=== PATIENT | male | born 1935 | race Caucasian/White ===

== ENCOUNTER 2023-09-07 23:18 | Inpatient (IN) | payer MEDICARE, OTHER, SELFPAY ==
[2023-09-07 18:19] VITALS: BP 160/89
[2023-09-07 19:01] LABS: % Basophils 0.6 % (0-2); % Eosinophils 7.4 % (0-6); % Immature Granulocytes 0.5 % (0-0.5); % Lymphocytes 16.9 % (20.5-51.1); % Monocytes 7.9 % (1.7-9.3); % Neutrophils 66.7 % (42.2-75.2); Absolute Basophils 0.1 10^3/uL (0-0.2); Absolute Immature Granulocytes 0.1 10^3/uL (0-0.05); Absolute Lymphocytes 2.4 10^3/uL (1.2-3.4); Absolute Monocytes 1.1 10^3/uL (0.1-0.6); Absolute Neutrophils 9.4 10^3/uL (1.4-6.5); Hematocrit 36.8 % (39.0-52.0); Mean Corp Hgb Conc. 32.6 g/dL (33.0-37.0); Mean Corpuscular Hgb 32.3 pg (27.0-31.0); Mean Corpuscular Volume 99.2 fL (80.0-94.0); Mean Platelet Volume 11.2 fL (7.4-10.4); Nucleated Red Blood Cells % 0 % (-); Platelet Count 278 10^3/uL (130-400); Red Blood Cell Count 3.71 10^6/uL (4.70-6.10); Red Cell Dist. Width 14.5 % (11.5-14.5); Urine Albumin Negative (Neg - Trace); Urine Bilirubin Negative (Negative); Urine Character Clear (Clear); Urine Color Yellow; Urine Glucose Negative (Negative); Urine Ketone Negative (Negative); Urine Leukocyte 1+ (Negative); Urine Nitrite Negative (Negative); Urine Occult Blood Negative (Negative); Urine Urobilinogen Negative (Neg - 1+); White Blood Cell Count 14.1 10^3/uL (4.8-10.8)
[2023-09-07 19:08] LABS: Urine Squamous Cell >30 /LPF (Few)
[2023-09-07 19:12] LABS: Urine Calcium Oxalate Crystals Present; Urine Yeast Few (Negative)
[2023-09-07 19:13] LABS: ALT (SGPT) 22 U/L (0-50); AST (SGOT) 29 U/L (17-59); Albumin 3.8 g/dl (3.5-5.0); Alkaline Phosphatase 81 U/L (38-126); Blood Urea Nitrogen 35 mg/dl (9-20); Calcium 12.8 mg/dl (8.4-10.2); Carbon Dioxide 26 mmol/L (22-30); Chloride 103 mmol/L (98-107); Glucose 111 mg/dl (70-99); Lactic Acid 2.2 mmol/L (0.7-2.0); Potassium 3.9 mmol/L (3.5-5.1); Sodium 139 mmol/L (135-145); Total Protein 6.7 g/dl (6.3-8.2); Urine Bacteria Few (Negative); eGFR 38.78
[2023-09-07] MEDS: NSS 1000 IV ×2 (20:48→23:28)
[2023-09-07 20:51] VITALS: BP 190/88
[2023-09-07] MEDS: ZOSYN 100 IV (20:53)
[2023-09-07 20:57] LABS: Urine Albumin Negative (Neg - Trace); Urine Bilirubin Negative (Negative); Urine Character Clear (Clear); Urine Color Yellow; Urine Glucose Negative (Negative); Urine Ketone Negative (Negative); Urine Leukocyte 1+ (Negative); Urine Nitrite Negative (Negative); Urine Occult Blood Negative (Negative); Urine Urobilinogen Negative (Neg - 1+)
[2023-09-07 21:09] LABS: PT 27.8 Sec (11.4-14.6)
[2023-09-07 21:14] LABS: Urine Calcium Oxalate Crystals Present; Urine Squamous Cell >30 /LPF (Few)
[2023-09-07 21:15] LABS: Urine Bacteria Few (Negative); Urine Red Blood Cell 0-2 /HPF (0-2)
[2023-09-07] MEDS: VANCOCIN 200 IV (21:35)
[2023-09-07 21:36] VITALS: BMI 28.0
[2023-09-07 21:59] VITALS: BP 177/81
--- NOTE | 2023-09-07 22:02 | ED.GENMED ---
History of Present Illness
General
Chief Complaint: Male Genito-Urinary Symptoms
Source: patient and spouse
Exam Limitations: none
Time Seen by Provider: 09/07/23 19:39
Nursing documentation reviewed up to this point in time: agreed with
Travel History
Have you had any contact with someone who has COVID-19?: No
Do you have any symptoms of coronavirus? Fever > 100 degrees, chills, cough, shortness of breath, sore throat, loss of taste or smell, muscle aches, or headache?: No
History of Present Illness
History of Present Illness:
Patient sent to ED by PCP for increaseing weakness and confusion. Symptoms started earlier this week. PCP evaluated him yesterday, sent him for labs and head CT. Head CT was neg. for acute findings. WBC elevated at 12 with left shift. Patient
denies fever/chills. reports his appetite has been poor.Now with cough. Brought to ED by spouse for eval.
Past History
Past History
ED Past Medical History: HTN, Hypercholesterolemia and Other (DVT,PE, PVD)
ED Past Surgical History: Orthopedic
Social History
Tobacco: Non-smoker
Alcohol: None
Drug: None
Personal:
Living: with family
Review of Systems
Review of Systems
Allergies reviewed?: Yes
All Other Systems: ROS reviewed and negative except as documented in HPI and ROS
Constitutional: Reports fatigue
Respiratory: Reports cough
Cardiac: Reports no symptoms
ABD/GI: Reports no symptoms
: Reports no symptoms
Musculoskeletal: Reports no symptoms
Skin: Reports no symptoms
Neurological: Reports weakness
Psychiatric: Reports no symptoms
Phy Exam
General Physical Exam
General Presentation: well appearing
General age: appears stated age
General Skin: warm and dry
General Habitus: normal
General Mental: alert
Cardiovascular Exam
Cardiovascular Exam: regular rate/rhythm and no edema
Pulmonary Exam
Pulmonary Exam: no respiratory distress, chest non tender and decreased breath sounds
Cough: productive cough
Gastrointestinal Exam
Gastrointestinal Exam: normal bowel sounds, non tender, soft, no organomegaly, non distended and no cva tenderness
Neurological Exam
Neurological Exam: alert, oriented x3, CN II-XII intact, no motor deficits, no sensory deficits and speech normal
Musculoskeletal Exam
Musculoskeletal Exam: full ROM and neuro vasc intact
Skin Exam
Skin Exam: normal color, warm/dry and no rash
Psychiatric Exam
Psychiatric Exam: normal mood/affect
Course
Orders/Labs/Results
Orders:
Orders
09/07/23 18:39
Complete Blood Count/With Diff Urgent
Comprehensive Metabolic Panel Urgent
Folate Urgent
Comment: ADD ON
Lactic Acid Urgent
NT-proBNP Routine
Comment: ADD ON
Urinalysis Reflex To Culture Urgent
Date Specimen was Collected: 09/07/23
Time Specimen was Collected: 18:24
Urine Microscopic Reflex Cult Urgent
Vitamin B12 Urgent
Comment: ADD ON
Urine Culture Urgent
DARION Source: U
Specimen Description:
Date Specimen was Collected: 09/07/23
Time Specimen was Collected: 18:24
09/07/23 19:52
CR Chest - 2 Views Urgent
Comment:
Reason For Exam: weakness, cough
09/07/23 19:53
0.9% Sodium Chloride 1000 ml [Nss] 1,000 ml IV BOLUS
09/07/23 20:25
Piperacillin/Tazo 4.5 Gram [Zosyn] 4.5 gram in 100 ml IV NOW
Vancomycin 1 Gram/200 ml [Vancocin] 1 gram in 200 ml IV NOW
09/07/23 20:43
Prothrombin Time Urgent
Urinalysis Urgent
Date Specimen was Collected: 09/07/23
Time Specimen was Collected: 20:33
Urine Microscopic Urgent
Date Specimen was Collected: 09/07/23
Time Specimen was Collected: 20:33
Blood Culture Urgent
DARION Source: Blood/Venous
Specimen Description:
Date Specimen was Collected: 09/07/23
Time Specimen was Collected: 18:24
09/07/23 22:24
COVID-19 Antigen Urgent
Source: Nasal Swab
Influenza A+B Rapid Molecular Urgent
DARION Source: Nasal Swab
Specimen Description:
09/07/23 22:52
Admit/Transfer Patient As Directed
Co-Sign Provider:
Level of Care: Inpatient admission
Assign to:: Medical/Surgical
Physician / Group: Yrn
Diagnosis: LICHA
Reason for Hospitalization: IVFs
Expected length of stay greater than two midnights?: Yes
ELOS- Estimated Length of Stay in days: 3
I certify the patient meets the requirements for IP care: Yes
09/07/23 23:17
Lactate Level [Lactic Acid] Urgent
09/07/23 23:25
0.9% Sodium Chloride 1000 ml [Nss] 1,000 ml IV 75 mls/hr
09/08/23 01:16
Acetaminophen [Tylenol] 650 mg PO Q4HPRN PRN
09/08/23 01:16
Activity As Directed
Activity Level: Out of Bed- Chair
With Assistance
I&O [Intake/ Output] As Directed
Frequency: q12h
Vital Signs As Directed
Frequency: Per unit guidelines
Weight As Directed
Frequency: Daily
Ot Eval And Treat Routine
Pt Eval And Treat Routine
Activity Level: Out of Bed-Early Mobility
09/08/23 Breakfast
Regular
At Your Request: Limited Participation
Does patient need a safe tray?: No
09/08/23 07:32
Basic Metabolic Panel IN AM
Complete Blood Count/No Diff IN AM
Magnesium IN AM
Prothrombin Time IN AM
09/08/23 08:00
Allopurinol [Zyloprim] 300 mg PO DAILY
Amlodipine [Norvasc] 2.5 mg PO DAILY
Cinacalcet HCl [Sensipar] 30 mg PO DAILY
Clopidogrel Bisulfate [Plavix] 75 mg PO DAILY
Metoprolol Xl [Toprol Xl] 25 mg PO BID
Tamsulosin [Flomax] 0.4 mg PO DAILY
Warfarin [Coumadin] 3 mg PO SUTUWEFRSA
09/08/23 18:00
Atorvastatin [Lipitor] 40 mg PO QPM
09/09/23 06:02
Prothrombin Time IN AM
09/10/23 06:00
Prothrombin Time IN AM
09/10/23 08:00
Warfarin [Coumadin] 4 mg PO MOTH
09/11/23 06:00
Prothrombin Time IN AM
09/12/23 06:00
Prothrombin Time IN AM
Abnormal Lab Results
09/07/23 09/07/23
18:39 20:43
WBC 14.1 H 10^3/uL
(4.8-10.8)
RBC 3.71 L 10^6/uL
(4.70-6.10)
Hgb 12.0 L g/dL
(13.0-18.0)
Hct 36.8 L %
(39.0-52.0)
MCV 99.2 H fL
(80.0-94.0)
MCH 32.3 H pg
(27.0-31.0)
MCHC 32.6 L g/dL
(33.0-37.0)
MPV 11.2 H fL
(7.4-10.4)
Abs Immat Gran (auto) 0.1 H 10^3/uL
(0-0.05)
Absolute Neuts (auto) 9.4 H 10^3/uL
(1.4-6.5)
Absolute Monos (auto) 1.1 H 10^3/uL
(0.1-0.6)
Absolute Eos (auto) 1.0 H 10^3/uL
(0-0.7)
Lymphocytes % 16.9 L %
(20.5-51.1)
Eosinophils % 7.4 H %
(0-6)
PT 27.8 H Sec
(11.4-14.6)
BUN 35 H mg/dl
(9-20)
Creatinine 1.7 H mg/dL
(0.7-1.3)
Glucose 111 H mg/dl
(70-99)
Lactic Acid 2.2 H mmol/L
(0.7-2.0)
Calcium 12.8 H mg/dl
(8.4-10.2)
Ur Leukocyte Esterase 1+ A
(Negative)
Leukocyte Esterase Rfl 1+ A
(Negative)
Urine RBC 3-6 A /HPF
(0-2)
Urine WBC 11-15 A /HPF
(0-5)
Urine WBC (Reflex) 11-15 A /HPF
(0-5)
Urine Bacteria Few A
(Negative)
Urine Bacteria (Reflex) Few A
(Negative)
Urine Yeast Few A
(Negative)
09/07/23 18:39
09/07/23 18:39
Vital Signs
Initial and Last Documented VS:
Initial Vital Signs
Temp Pulse Resp BP Pulse Ox
98.3 F 93 20 160/89 95
09/07/23 18:19 09/07/23 18:19 09/07/23 18:19 09/07/23 18:19 09/07/23 18:19
Last Documented Vital Signs
Temp Pulse Resp BP Pulse Ox
97.5 F 71 16 152/84 94
09/09/23 11:44 09/09/23 12:47 09/09/23 11:44 09/09/23 12:47 09/08/23 23:44
*Radiology
Radiology exam reviewed: radiology read reviewed
*Critical Care Note
Total Time (30-74mins, 75-104mins- exclusive of procedures): Not Applicable
ED Attending Note
-
Portions of this chart may have been created with voice recognition software.� Occasional wrong word or��sound alike� substitutions may have occurred due to the inherent limitations of voice recognition software.
Discharge Plan
Departure
Patient Disposition: Admit
Date of Disposition: 09/07/23
Time of Disposition: 22:07
Presentation/result/management discussed w/ accepting MD/DO: Hospitalist
Patient with high blood pressure during this ER visit?: Yes
Condition: Fair
Covid-19: Not Applicable
Discharge Problem:
Pneumonia, ARF (acute renal failure)
Interventions
Interventions:
*Risk Screen - Suicide Last Done: 09/07/23 18:19
*General Assessment Last Done: 09/07/23 18:19
*Neglect/Abuse Screening Last Done: 09/07/23 22:00
ED- Fall Risk Assessment Last Done: 09/08/23 00:49
*ED COVID-19 Vaccine History Last Done: 09/08/23 00:00
*Nursing Disposition Last Done: 09/08/23 01:05
ED-Male Genitourinary Assessment Last Done: 09/07/23 20:58
Discharge Date and Time
Discharge Date/Time: 09/08/23 01:27
--- NOTE | 2023-09-07 22:40 | HPS.HSE ---
Addendum entered and electronically signed by Yong Pool DO 09/07/23 23:55:
Patient seen and examined independently. Agree with findings and plan s set forth by Kinga Aranda PA-C.
Patient is an 88y M with PMH significant for hypertension, DVT / PE and CKD III who presents to ED for evaluation of confusion and generalized weakness. Some vague increase in weakness and confusion over the past 2 weeks. No focal / specific /
localizing complaints including chest pain, cough, N/V/D, urinary symptoms, etc. No fevers / chills. Patient seen by PCP today and advised to present to the ED to evaluate for 'infection somewhere in the body'.
In the ED, patient is resting comfortably and has no complaints.
Ass:
LICHA on CKD III
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
Pneumonitis by CXR
ASCVD s/p Stent
Benign Hypertension
Hyperlipidemia
BPH
Plan:
Admit for further evaluation and treatment.
IVF support overnight and follow for improvement in renal function.
PT / OT evaluations.
No clinical evidence to suggest any acute infection.
Would observe off of further abx for now.
Monitor for any new / focal symptoms.
Continue BP med regimen and adjust as needed for adequate control.
Original Note:
Family Physician
-
Family Physician: Alex Bowman
Chief Complaint
-
Weakness
History of Present Illness
Pt is an 88yo M w/ a PMH of HTN, HLD, DVT/PE, CKD-III, and Hyperparathyroidism who is presenting to the ED w/ his due to confusion and generalized weakness. The patient states that his PCP saw him today and advised that he had 'an infection
somewhere in the body but is unsure where' and that he should be seen at the ED today for a workup. The patient's states he has been 'a little' confused and has been experiencing increased weakness over the last 2 weeks. She notes that he seems
to be less steady on his feet and that he fell twice in the last two weeks, roughly one week apart. The patient reports hitting his head during the first fall, but denies hitting his head during the second fall. He states that his PCP ordered a Head
CT recently and no abnormalities were noted. He admits to SOB w/ exertion x 2 weeks, but states this is very intermittent and only happens when he is actively exercising. reports decreased oral intake, noting he doesn't drink enough water. He
denies fever, chills, sweats, cough, sore throat, N/V/D/C, abdominal pain, chest pain, palpitations, pain or burning with urination, increased urinary frequency, difficulty urinating, numbness or tingling, low back pain or headache.
Medical History
Past Medical History
Past Medical History: Reports Other
Additional Past Medical History:
Coronary Artery Disease s/p Stent
Essential Hypertension
Hyperlipidemia
Hyperparathyroidism
CKD Stage III
DVT/PE
Gout
BPH
Past Surgical History: Reports Other
Additional Past Surgical History:
Bilateral Knee Replacement
Right Shoulder Repair
Cataracts
Social History
Tobacco: Former Smoker (Quit 50 years ago)
Alcohol: Occasional (One beer or glass of wine nightly)
Family History
Family History: Not pertinent
Allergies / Home Medications
Allergies reflects when Allergies were last updated in [facility].
Home Medications with original date entered in [facility]
Allergy/Medication List:
Allergies
Allergy/AdvReac Type Severity Reaction Status Date / Time
Iodinated Contrast Media Allergy Severe Swelling Verified 09/07/23 18:19
coconut Allergy Intermediate Rash Verified 09/07/23 18:19
melon Allergy Intermediate Rash Verified 09/07/23 18:19
shellfish derived Allergy Intermediate Rash Verified 09/07/23 18:19
Home Medications
allopurinol 300 mg tablet 300 mg PO DAILY 08/05/19
cinacalcet 30 mg tablet 30 mg PO DAILY 08/05/19
lisinopril 40 mg tablet 40 mg PO DAILY 08/05/19
tamsulosin 0.4 mg capsule 0.4 mg PO DAILY 08/05/19
warfarin 3 mg tablet (Jantoven) 3 mg PO SUTUWEFRSA 08/05/19
warfarin 4 mg tablet (Jantoven) 4 mg PO MOTH 08/05/19
atorvastatin 40 mg tablet 40 mg PO QPM #90 tabs 08/07/19
clopidogrel 75 mg tablet 75 mg PO DAILY #90 tabs 08/07/19
metoprolol succinate 25 mg tablet,extended release 24 hr 25 mg PO BID #60 tabs 08/07/19
amlodipine 5 mg tablet 2.5 mg PO DAILY 09/07/23
cholecalciferol (vitamin D3) 25 mcg (1,000 unit) tablet (Vitamin D3) 25 mcg PO DAILY 09/07/23
clotrimazole 1 % topical cream 1 applic topical BID 09/07/23
multivitamin 1 tab PO DAILY 09/07/23
polyvinyl alcohol-povidone (PF) 1.4 %-0.6 % eye drops in a dropperette (Refresh Classic (PF)) 1 drops BOTH EYES QIDPRN PRN dry eyes 09/07/23
tacrolimus 0.1 % topical ointment 1 applic topical DAILY 09/07/23
Review of Systems
-
A 12 point ROS was completed and negative except as noted: Yes
Constitutional: Denies Fever or Chills
Respiratory: Denies Cough or Trouble Breathing
Cardiac: Denies Chest Pain or Palpitations
Abdomen/GI: Reports Anorexia; Denies Abdominal Pain, Nausea, Vomiting or Diarrhea
: Denies Dysuria or Frequency
Physical Exam
Vital Signs
Vital Signs
Temp Pulse Resp BP Pulse Ox
98.5 F 76 16 177/81 97
09/07/23 22:02 09/07/23 21:59 09/07/23 21:59 09/07/23 21:59 09/07/23 21:59
Physical Exam
General: Comfortable and Conversant
HEENT: Anicteric and Moist mucous membranes
Respiratory: Rales (Right base) and Non Labored Respirations
Cardiac: S1/S2, Regular Rhythm and Murmur
GI: Soft and Non Tender
Rectal: Deferred by Provider
Musculoskeletal: No Clubbing, No Cyanosis and Other (Trace lower ext edema)
Skin: Warm and Dry
Neuro: Awake, Alert, Oriented and Nonfocal/grossly intact
Psych: Calm
Laboratory Results
-
09/07/23 18:39
09/07/23 18:39
Laboratory Results
PT 27.8 Sec (11.4-14.6) H 09/07/23 20:43
INR 2.60 09/07/23 20:43
Lactic Acid 2.2 mmol/L (0.7-2.0) H 09/07/23 18:39
Total Bilirubin 1.0 mg/dl (0.2-1.3) 09/07/23 18:39
AST 29 U/L (17-59) 09/07/23 18:39
ALT 22 U/L (0-50) 09/07/23 18:39
Alkaline Phosphatase 81 U/L (38-126) 09/07/23 18:39
Data Reviewed
-
Lab Data: Labs Reviewed by me
Old Records: Reviewed
Impression/Plan
-
Acute Kidney Injury on CKD III
-Creatinine 1.28 on Jul 23
-Continue IVFs
-Recheck in AM
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
-Calcium 11.1 on Jul 23
-Continue Sensipar
Pneumonitis by CXR
-Patient denies cough, fever, sweats or chills
-Patient received vancomycin and Zosyn in ED -Hold on further antibiotics
Coronary Artery Disease s/p Stent
-Continue Plavix
Essential Hypertension
-Continue amlodipine, and metoprolol
-Hold lisinopril in setting of elevated creatinine
Hyperlipidemia
-Continue atorvastatin
BPH
-Continue tamsulosin
Hx DVT/[place]
-Continue Coumadin
-Monitor INR
Code Status: Full Code
[2023-09-07 22:47] LABS: COVID-19 Antigen Negative (Negative)
[2023-09-07 23:00] VITALS: BP 183/91
[2023-09-08] VITALS (11 sets, daily range): BP systolic 132–186; BP diastolic 79–105; PULSE 81; O2SAT 97; BMI 26.0
[2023-09-08 00:30] LABS: NT-proBNP 930 pg/ml
[2023-09-08 02:36] LABS: Vitamin B12 799 pg/ml (239-931)
--- NOTE | 2023-09-08 03:25 | PTCARENOTE ---
Receive pt from ER. Pt alert oriented X3, forgetful at times, but calm and cooperative. Pt assisted X1 to his bed, feels weak. Pt oriented to the room, call hernandez within reach. Pt offers no complaint of pain, SOB, fever, or chills. FM=477/68, HR=85,
RR=18, T=97.6, SpO2=96% on RA. IVFs infusing as per order. Pt's at the bedside helping with medical hx. Will continue to monitor the pt.
--- NOTE | 2023-09-08 07:36 | W.PN.HOSP.TC ---
Today's Communication/Plan
-
cont IVF
Monitor Calcium levels
Monitor Renal Function
blood pressure control
continue observation off antibiotics
Assessment / Plan
Assessment / Plan
Physical Exam
General: Comfortable and Conversant
HEENT: Anicteric and Moist mucous membranes
Respiratory: Clear to Auscultation Non Labored Respirations
Cardiac: S1/S2, Regular Rhythm and Murmur
GI: Soft and Non Tender
Musculoskeletal: No Clubbing, No Cyanosis and Other (Trace lower ext edema)
Skin: Warm and Dry
Neuro: Awake, Alert, Oriented and Nonfocal/grossly intact
Psych: Calm
88M HTN, HLD, DVT/PE, CKD-III, and Hyperparathyroidism p/w confusion and generalized weakness progressive over the last 2 weeks associate exertional dyspnea. reported decreased oral intake, noting he doesn't drink enough water.� Labs notable
for hypercalcemia and LICHA. CXR noted nonspecific pneumonitis in the right lower lobe and left perihilar distribution.
Acute Kidney Injury on CKD III
-Creatinine 1.28 on Jul 23
-Continue IVFs
-improving, cont IVF
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
-Calcium 11.1 on Jul 23
-Continue Sensipar
-Improving, cont IVF as above
Pneumonitis by CXR lacks clinical correlation
-Patient denies cough, fever, sweats or chills
-Patient received vancomycin and Zosyn in ED -Holding further antibiotics at this time
Coronary Artery Disease s/p Stent
-Continue Plavix
Essential Hypertension
-Continue amlodipine, and metoprolol
-Hold lisinopril in setting of elevated creatinine
-hydralazine prn
Hyperlipidemia
-Continue atorvastatin
BPH
-Continue tamsulosin
Hx DVT/[place]
-Continue Coumadin
-Monitor INR, therapeutic
Code Status: Full Code
PT/OT Case mgmt appreciated Home Health Recommended however patient refusing
discussed with patient and his
I spent a total of 57 minutes with the patient or on the floor. More than 50% of this time involved counseling and coordination of care.
Anticipated Discharge: 24 - 48 hours
Subjective/Interval History
-
Date of Service: September 08, 2023
Seen and examined at bedside in no acute distress sitting up comfortably in bed. Overall notes improvement in symptoms. present during evaluation reports confusion significantly improved though not completely resolved.
Objective Data
-
Labs:
Laboratory Results
09/07/23 09/08/23
20:43 07:32
WBC Pending
Hgb Pending
Hct Pending
Plt Count Pending
PT 27.8 H Pending
INR 2.60 Pending
Sodium Pending
Potassium Pending
Chloride Pending
Carbon Dioxide Pending
BUN Pending
Creatinine Pending
Glucose Pending
Calcium Pending
Vital Signs:
Vital Signs
Temp Pulse Resp BP Pulse Ox
97.6 F 73 18 173/86 97
09/08/23 07:12 09/08/23 07:12 09/08/23 07:12 09/08/23 07:12 09/08/23 07:12
I&O
09/07/23 09/08/23 09/09/23
06:59 06:59 06:59
Intake Total 380 / 380
Output Total 1400 / 1400
Balance -1020 / -1020
[2023-09-08] MEDS: TOPROL XL 25 MG PO ×2 (07:44→20:53)
[2023-09-08] MEDS: ZYLOPRIM 300 MG PO (07:44)
[2023-09-08] MEDS: NORVASC 2.5 MG PO (07:44)
[2023-09-08] MEDS: PLAVIX 75 MG PO (07:44)
[2023-09-08] MEDS: FLOMAX 0.400000000000000022 MG PO (07:44)
[2023-09-08] MEDS: SENSIPAR 30 MG PO (08:37)
[2023-09-08] MEDS: COUMADIN 3 MG PO (08:38)
[2023-09-08 08:39] LABS: Hematocrit 32.2 % (39.0-52.0); Hemoglobin 10.7 g/dL (13.0-18.0); Mean Corp Hgb Conc. 33.2 g/dL (33.0-37.0); Mean Corpuscular Hgb 33.1 pg (27.0-31.0); Mean Corpuscular Volume 99.7 fL (80.0-94.0); Mean Platelet Volume 11.8 fL (7.4-10.4); Platelet Count 225 10^3/uL (130-400); Red Blood Cell Count 3.23 10^6/uL (4.70-6.10); Red Cell Dist. Width 14.3 % (11.5-14.5)
[2023-09-08 08:51] LABS: INR 2.79; PT 29.3 Sec (11.4-14.6)
[2023-09-08 09:16] LABS: Blood Urea Nitrogen 28 mg/dl (9-20); Calcium 11.4 mg/dl (8.4-10.2); Carbon Dioxide 24 mmol/L (22-30); Chloride 107 mmol/L (98-107); Estimated Creatinine Clearance 39 ml/min; Glucose 101 mg/dl (70-99); Magnesium 1.8 mg/dl (1.6-2.3); Sodium 137 mmol/L (135-145); eGFR 48.95
[2023-09-08] MEDS: APRESOLINE 5 MG IV (10:14)
[2023-09-08] MEDS: NSS 1000 IV (11:53)
--- NOTE | 2023-09-08 16:54 | CM ---
Alert awake oriented patient who lives with his Chad at [facility].He is independent in driving and in all activities of daily living.He was offered VN he declined need.[employer] adaptive devices.
No VN/SNF history
Pharmacy [facility]
PCP DR Grey
PLAN Home Declined VN
[2023-09-08] MEDS: LIPITOR 40 MG PO (17:13)
[2023-09-09 00:42] VITALS: BP 175/94
[2023-09-09] MEDS: NSS 1000 IV (02:50)
[2023-09-09 06:00] VITALS: BMI 25.7
--- NOTE | 2023-09-09 07:19 | W.PN.HOSP.TC ---
Today's Communication/Plan
-
cont IVF for now
any sign of sob or new supplemental oxygen requirement, discontinue IVF and start Lasix 40 mg IV
nephro eval
blood pressure control
empiric abx augmentin started possible pneumonia
Assessment / Plan
Assessment / Plan
Physical Exam
General: Comfortable and Conversant
HEENT: Anicteric and Moist mucous membranes
Respiratory: Clear to Auscultation Non Labored Respirations
Cardiac: S1/S2, Regular Rhythm and Murmur
GI: Soft and Non Tender
Musculoskeletal: No Clubbing, No Cyanosis, Trace lower ext edema
Skin: Warm and Dry
Neuro: Awake, Alert, Oriented and Nonfocal/grossly intact
Psych: Calm
88M HTN, HLD, DVT/PE, CKD-III, and Hyperparathyroidism p/w confusion and generalized weakness progressive over the last 2 weeks associate exertional dyspnea. reported decreased oral intake, noting he doesn't drink enough water.� Labs notable
for hypercalcemia and LICHA. CXR noted nonspecific pneumonitis in the right lower lobe and left perihilar distribution.
Acute Kidney Injury on CKD III
-Creatinine 1.28 on Jul 23
-Continue IVFs
-improving, cont IVF
-Cr improved from 1.7 to 1.4 possibly baseline
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
-Calcium 11.1 on Jul 23
-Continue Sensipar
-Improved to an extent on IVF, improvement since stalled, remains hypercalcemic
-Nephro eval requested
Pneumonitis by CXR lacks clinical correlation
-Patient denies cough, fever, sweats or chills
-Patient received vancomycin and Zosyn in ED -Holding further antibiotics at this time
-CT chest w/o contrast obtained noted Mild to moderate generalized diffuse bilateral increased groundglass opacity and mild generalized prominence of interstitial markings without focal dense consolidation.
broad differential possible air trapping/small airway disease, atypical infection, interstitial edema, diffuse alveolar damage, hypersensitivity pneumonitis, and acute eosinophilic pneumonia
-started empiric Augmentin for now 5 days treatment planned
-cont IVF for now, if develops hypoxic insufficiency or shortness of breath would discontinue and start lasix.
Coronary Artery Disease s/p Stent
-Continue Plavix
Essential Hypertension
-Continue amlodipine, and metoprolol
-Hold lisinopril in setting of elevated creatinine
-hydralazine prn
-Amlodipine increased from 2.5 to 5 mg daily for better bp control.
Hyperlipidemia
-Continue atorvastatin
BPH
-Continue tamsulosin
Hx DVT/AL
-Continue Coumadin
-Monitor INR, therapeutic
Code Status: Full Code
PT/OT Case mgmt appreciated Home Health Recommended however patient refusing
discussed with patient and his
I spent a total of 55 minutes with the patient or on the floor. More than 50% of this time involved counseling and coordination of care.
Anticipated Discharge: 24 - 48 hours
Subjective/Interval History
-
Date of Service: September 09, 2023
Sitting up comfortably in bed no acute distress appears comfortable at this time. Reports feeling disoriented earlier in the morning waking from sleep forgetting where he is. Otherwise reports feeling well.
Objective Data
-
Labs:
Laboratory Results
09/09/23
06:02
WBC Pending
Hgb Pending
Hct Pending
Plt Count Pending
PT Pending
INR Pending
Sodium Pending
Potassium Pending
Chloride Pending
Carbon Dioxide Pending
BUN Pending
Creatinine Pending
Glucose Pending
Calcium Pending
Vital Signs:
Vital Signs
Temp Pulse Resp BP Pulse Ox
98.3 F 90 18 175/94 94
09/08/23 23:44 09/09/23 00:42 09/08/23 23:44 09/09/23 00:42 09/08/23 23:44
I&O
09/08/23 09/09/23 09/10/23
06:59 06:59 06:59
Intake Total 380 / 380 1485 / 1485
Output Total 1400 / 1400 700 / 700
Balance -1020 / -1020 785 / 785
[2023-09-09 07:30] VITALS: BP 154/65
[2023-09-09 07:33] LABS: Hematocrit 35.7 % (39.0-52.0); Hemoglobin 11.8 g/dL (13.0-18.0); Mean Corp Hgb Conc. 33.1 g/dL (33.0-37.0); Mean Corpuscular Hgb 32.8 pg (27.0-31.0); Mean Corpuscular Volume 99.2 fL (80.0-94.0); Mean Platelet Volume 11.7 fL (7.4-10.4); Platelet Count 278 10^3/uL (130-400); Red Cell Dist. Width 13.8 % (11.5-14.5); White Blood Cell Count 13.8 10^3/uL (4.8-10.8)
[2023-09-09 07:37] LABS: PT 28.6 Sec (11.4-14.6)
[2023-09-09 08:05] LABS: Blood Urea Nitrogen 22 mg/dl (9-20); Calcium 11.6 mg/dl (8.4-10.2); Carbon Dioxide 20 mmol/L (22-30); Chloride 112 mmol/L (98-107); Estimated Creatinine Clearance 39 ml/min; Glucose 98 mg/dl (70-99); Magnesium 1.9 mg/dl (1.6-2.3); Phosphorus 3.3 mg/dl (2.5-4.5); Sodium 139 mmol/L (135-145); eGFR 48.95
[2023-09-09 08:12] LABS: Potassium 4.2 mmol/L (3.5-5.1)
[2023-09-09] MEDS: TOPROL XL 25 MG PO ×2 (09:12→20:54)
[2023-09-09] MEDS: SENSIPAR 30 MG PO (09:12)
[2023-09-09] MEDS: FLOMAX 0.400000000000000022 MG PO (09:12)
[2023-09-09] MEDS: NORVASC 2.5 MG PO (09:12)
[2023-09-09] MEDS: ZYLOPRIM 300 MG PO (09:12)
[2023-09-09] MEDS: PLAVIX 75 MG PO (09:16)
[2023-09-09] MEDS: COUMADIN 3 MG PO (09:19)
[2023-09-09] MEDS: AUGMENTIN 875 MG/125 MG 1 TABLET PO ×2 (10:06→20:55)
[2023-09-09 11:44] VITALS: BP 183/92
[2023-09-09] MEDS: APRESOLINE 5 MG IV (12:13)
[2023-09-09 12:47] VITALS: BP 152/84
--- NOTE | 2023-09-09 13:52 | W.CON.NEPH ---
Consultation
-
Date/Time Consultation Requested: 09/09/23 1000
Date/Time Consultation Performed: 09/09/23 1400
Requesting Provider: Mandi Jane
Performing Provider: Isela Leigh
Reason for Consultation: LICHA, hypercalcemia
Medical History
-
Chief Complaint: Abnormal labs, LICHA
History of Present Illness:
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
confusion and generalized weakness, sent from PCP..�Pt has h/o PHPTH since 2017 and due to his age felt not surgical candidate and maintained on Sensipar 30mg daily. For last few weeks his intake is decreased with low appetite. No nocturia or
dysuria. Eventually he became weak and confusion for few days.�ODue to leucocytosis PCP felt possible infection and recommended to come to ER. On admit noted cr 1.7, shanthi 12.8. with IVF cr better at 1.4, shanthi better to 11.4 and today 11.6. Denies any
chest pain, SOB, cough, N/V/D, urinary symptoms, etc.� No fevers / chills.�
Past Medical History
Coronary Artery Disease s/p Stent
Essential Hypertension
Hyperlipidemia
Hyperparathyroidism
CKD Stage III
DVT/PE
Gout
BPH
Past Surgical History: Other (Bilateral Knee Replacement Right Shoulder Repair Cataracts)
Social History
Tobacco: Former Smoker (quit 52 yrs ago)
Alcohol: Occasional
Living: With Family
Family History
no CKD
Family History: Not Pertinent
Allergies / Home Medications
Allergy/AdvReac Type Severity Reaction Status Date / Time
Iodinated Contrast Media Allergy Severe Swelling Verified 09/07/23 18:19
coconut Allergy Intermediate Rash Verified 09/07/23 18:19
melon Allergy Intermediate Rash Verified 09/07/23 18:19
shellfish derived Allergy Intermediate Rash Verified 09/07/23 18:19
Medication Instructions Recorded Confirmed Type
allopurinol 300 mg tablet 300 mg PO DAILY Gout 08/05/19 09/07/23 History
cinacalcet 30 mg tablet 30 mg PO DAILY Calcimimetic 08/05/19 09/07/23 History
lisinopril 40 mg tablet 40 mg PO DAILY Blood Pressure 08/05/19 09/07/23 History
tamsulosin 0.4 mg capsule 0.4 mg PO DAILY Urinary Issue 08/05/19 09/07/23 History
warfarin 3 mg tablet (Jantoven) 3 mg PO SUTUWEFRSA Blood Clot 08/05/19 09/07/23 History
Prevention/Tx
warfarin 4 mg tablet (Jantoven) 4 mg PO MOTH Blood Clot 08/05/19 09/07/23 History
Prevention/Tx
atorvastatin 40 mg tablet 40 mg PO QPM #90 tabs 08/07/19 09/07/23 Rx
clopidogrel 75 mg tablet 75 mg PO DAILY #90 tabs 08/07/19 09/07/23 Rx
metoprolol succinate 25 mg 25 mg PO BID #60 tabs 08/07/19 09/07/23 Rx
tablet,extended release 24 hr
amlodipine 5 mg tablet 2.5 mg PO DAILY Blood Pressure 09/07/23 09/07/23 History
cholecalciferol (vitamin D3) 25 25 mcg PO DAILY Supplement 09/07/23 09/07/23 History
mcg (1,000 unit) tablet (Vitamin
D3)
clotrimazole 1 % topical cream 1 applic topical BID Skin Issues 09/07/23 09/07/23 History
multivitamin 1 tab PO DAILY Supplement 09/07/23 09/07/23 History
polyvinyl alcohol-povidone (PF) 1 drops BOTH EYES QIDPRN PRN dry 09/07/23 09/07/23 History
1.4 %-0.6 % eye drops in a eyes
dropperette (Refresh Classic (PF))
tacrolimus 0.1 % topical ointment 1 applic topical DAILY Skin Issues 09/07/23 09/07/23 History
Review of Systems
-
All complete 12 point ROS inquired and found negative other than stated in HPI
Physical Exam
Vital Signs
Vital Signs
Temp Pulse Resp BP Pulse Ox
97.5 F 71 16 152/84 94
09/09/23 11:44 09/09/23 12:47 09/09/23 11:44 09/09/23 12:47 09/08/23 23:44
Lab Results
WBC 13.8 10^3/uL (4.8-10.8) H 09/09/23 06:02
RBC 3.60 10^6/uL (4.70-6.10) L 09/09/23 06:02
Hgb 11.8 g/dL (13.0-18.0) L 09/09/23 06:02
Hct 35.7 % (39.0-52.0) L 09/09/23 06:02
Plt Count 278 10^3/uL (130-400) D 09/09/23 06:02
Sodium 139 mmol/L (135-145) 09/09/23 06:02
Potassium 4.2 mmol/L (3.5-5.1) 09/09/23 06:02
Chloride 112 mmol/L (98-107) H 09/09/23 06:02
Carbon Dioxide 20 mmol/L (22-30) L 09/09/23 06:02
BUN 22 mg/dl (9-20) H 09/09/23 06:02
Creatinine 1.4 mg/dL (0.7-1.3) H 09/09/23 06:02
eGFR 48.95 09/09/23 06:02
Glucose 98 mg/dl (70-99) 09/09/23 06:02
Calcium 11.6 mg/dl (8.4-10.2) H 09/09/23 06:02
Phosphorus 3.3 mg/dl (2.5-4.5) 09/09/23 06:02
Vta-K-Hcnohdsrujd Pept 930 pg/ml 09/07/23 18:39
Albumin 3.8 g/dl (3.5-5.0) 09/07/23 18:39
Exams:� CR Chest - 2 Views
PROCEDURE: 2 view chest x-ray.
INDICATION: Weakness. Cough.
COMPARISON: CT chest 05/31/2023.
FINDINGS:
No focal dense consolidation identified. However, subtle interstitial prominence is noted, slightly more pronounced at the right lung base and in the left perihilar distribution, raising possibility of nonspecific pneumonitis.
No pneumothorax. No pleural effusion. The heart is top normal in size. No significant vascular congestion or congestive heart failure.
IMPRESSION:
Subtle nonspecific pneumonitis in the right lower lobe and left perihilar distribution.
Electronically signed by Pancho Shook MD 09/07/2023 9:55 PM
Dictated By: Boone PIERCE,Pancho Gotti.
Dictated Date & Time: 09/07/232153
Physical Exam
General: Awake, Alert, Oriented and AOx3
HEENT: EOMI and Anicteric
Respiratory: Crackels (bases mainlt right side)
Cardiac: S1/S2 and Murmur (jessica and Aortic area, known mitral and Aortic sclerosis echo noted in 04/2023)
Abdomen: Soft, Nontender and Nondistended
Musculoskeletal: No Clubbing, No Cyanosis and No Edema
Skin: No Rash
Psych: Mood/afflect pleasant, Insight/judgement good and Appropriate
Assessment/Plan
-
IMP:
Acute Kidney Injury on CKD III cr 1.28/ per chart in jul
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
non gap met acidosis
Pneumonitis by CXR l
Coronary Artery Disease s/p Stent
Essential Hypertension
Hyperlipidemia
BPH
h/o DVT and PE
h/o Gout
h/o K stones
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
Plan:
A/w gen weakness, confusion, refer to ER by PCP with concern of infection, shanthi 12.8
LICHA-likely prerenal, UA ?uti, follow bladder scan
cr improving with IVF
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
check PTH, vit D level
would be cautious with IVF, crackles on exam but BNP only 900 range on admit-update now, prn lasix
likely change to bicarb with evolving mild met acidosis
consider pamidronate if no improvement seen
BP are high end, increase Amlodipine while holding ACEI, cont BB
d/w
[2023-09-09 16:12] LABS: NT-proBNP 1610 pg/ml
[2023-09-09 16:20] VITALS: BP 154/81
[2023-09-09] MEDS: LASIX 20 MG IV (16:46)
[2023-09-09] MEDS: SODIUM BICARBONATE 1075 MEQ IV (16:46)
[2023-09-09] MEDS: LIPITOR 40 MG PO (16:47)
[2023-09-09 19:48] VITALS: BP 91/59
[2023-09-10 03:21] VITALS: BP 159/70
[2023-09-10 05:58] VITALS: BMI 25.1
[2023-09-10 07:30] VITALS: BP 156/76
[2023-09-10 08:08] LABS: Hematocrit 34.3 % (39.0-52.0); Hemoglobin 11.4 g/dL (13.0-18.0); Mean Corp Hgb Conc. 33.2 g/dL (33.0-37.0); Mean Corpuscular Hgb 32.6 pg (27.0-31.0); Mean Platelet Volume 11.5 fL (7.4-10.4); Platelet Count 269 10^3/uL (130-400); Red Cell Dist. Width 14.4 % (11.5-14.5); White Blood Cell Count 11.3 10^3/uL (4.8-10.8)
[2023-09-10 08:22] LABS: INR 2.75
--- NOTE | 2023-09-10 08:28 | W.PN.HOSP.TC ---
Today's Communication/Plan
-
Plan for renal ultrasound.
Assessment / Plan
Assessment / Plan
Physical Exam
General: Comfortable and Conversant
HEENT: Anicteric and Moist mucous membranes
Respiratory: Clear to Auscultation Non Labored Respirations
Cardiac: S1/S2, Regular Rhythm and Murmur
GI: Soft and Non Tender
Musculoskeletal: No Clubbing, No Cyanosis, Trace lower ext edema
Skin: Warm and Dry
Neuro: Awake, Alert, Oriented and Nonfocal/grossly intact
Psych: Calm
A/P:
Acute Kidney Injury on CKD III
-Creatinine 1.28 on Jul 23
-IV fluids discontinued by nephrology
-Cr improved from 1.7 to 1.4 today back up to 1.7
-Plan for renal ultrasound
-Waiting for nephrology input
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
-Calcium 11.1 on Jul 23, today's 11.5
-Continue Sensipar
-Nephro evaluated and considering Pamidronate
Pneumonitis by CXR lacks clinical correlation
-Patient denies cough, fever, sweats or chills
-Patient received vancomycin and Zosyn in ED -Holding further antibiotics at this time
-CT chest w/o contrast obtained noted Mild to moderate generalized diffuse bilateral increased groundglass opacity and mild generalized prominence of interstitial markings without focal dense consolidation.
broad differential possible air trapping/small airway disease, atypical infection, interstitial edema, diffuse alveolar damage, hypersensitivity pneumonitis, and acute eosinophilic pneumonia
-started empiric Augmentin for now 5 days treatment planned
-Off IV fluids
-Eosinophils were 7.4% upon admission so consideration for eosinophilic pneumonitis--> discussed with patient and at bedside and I recommend pulmonary evaluation as outpatient. At the moment stable from pulmonary standpoint so no need for
further workup unless clinical status changes.
Coronary Artery Disease s/p Stent
-Continue Plavix
Essential Hypertension
-Continue amlodipine, and metoprolol
-Hold lisinopril in setting of elevated creatinine
-hydralazine prn
-Amlodipine increased from 2.5 to 5 mg daily for better bp control.
Hyperlipidemia
-Continue atorvastatin
BPH
-Continue tamsulosin
Hx DVT/PA
-Continue Coumadin
-INR 2.75 today
-Monitor INR, therapeutic
Code Status: Full Code
PT/OT Case mgmt appreciated Home Health Recommended however patient refusing
discussed with patient and his
Anticipated Discharge: 24 - 48 hours
Subjective/Interval History
-
Date of Service: September 10, 2023
Patient denies any chest pain or shortness of breath. He is alert but still somewhat disoriented.
Objective Data
-
Labs:
Laboratory Results
09/10/23 09/10/23
06:30 06:30
WBC 11.3 H
Hgb 11.4 L
Hct 34.3 L
Plt Count 269
PT 29.0 H
INR 2.75
Sodium Pending
Potassium Pending
Chloride Pending
Carbon Dioxide Pending
BUN Pending
Creatinine Pending
Glucose Pending
Calcium Pending Pending
Vital Signs:
Vital Signs
Temp Pulse Resp BP Pulse Ox
98.7 F 67 19 156/76 95
09/10/23 07:30 09/10/23 07:30 09/10/23 07:30 09/10/23 07:30 09/10/23 07:30
I&O
09/09/23 09/10/23 09/11/23
06:59 06:59 06:59
Intake Total 1485 / 1485 1999 / 1999
Output Total 700 / 700 880 / 880
Balance 785 / 785 1120 / 1120
Review of Systems
-
All other systems: Reviewed and negative
[2023-09-10] MEDS: ZYLOPRIM 300 MG PO (08:33)
[2023-09-10] MEDS: NORVASC 5 MG PO (08:33)
[2023-09-10] MEDS: FLOMAX 0.400000000000000022 MG PO (08:33)
[2023-09-10] MEDS: SENSIPAR 60 MG PO (08:33)
[2023-09-10] MEDS: AUGMENTIN 875 MG/125 MG 1 TABLET PO ×2 (08:34→20:54)
[2023-09-10] MEDS: PLAVIX 75 MG PO (08:34)
[2023-09-10] MEDS: TOPROL XL 25 MG PO ×2 (08:34→20:55)
[2023-09-10] MEDS: COUMADIN 4 MG PO (08:36)
[2023-09-10 08:51] LABS: Calcium 11.5 mg/dl (8.4-10.2)
[2023-09-10 08:53] LABS: Blood Urea Nitrogen 24 mg/dl (9-20); Calcium 11.6 mg/dl (8.4-10.2); Carbon Dioxide 24 mmol/L (22-30); Chloride 111 mmol/L (98-107); Estimated Creatinine Clearance 32 ml/min; Glucose 89 mg/dl (70-99); Magnesium 1.9 mg/dl (1.6-2.3); Phosphorus 3.4 mg/dl (2.5-4.5); Potassium 3.9 mmol/L (3.5-5.1); Sodium 141 mmol/L (135-145); eGFR 38.78
[2023-09-10 11:33] LABS: Folate > 20.0 ng/ml (2.76-20)
[2023-09-10 11:51] VITALS: BP 144/70; PULSE 66
--- NOTE | 2023-09-10 12:56 | W.PN.NEPH.PH ---
Today's Communication / Plan
-
aredia
Assessment/Plan
-
IMP:
Acute Kidney Injury on CKD III cr 1.28/ per chart in jul
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
non gap met acidosis
Pneumonitis by CXR l
Coronary Artery Disease s/p Stent
Essential Hypertension
Hyperlipidemia
BPH
h/o DVT and PE
h/o Gout
h/o K stones
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
Plan:
-follow BMP
-await PTH
-aredia today
-no IVF today
-continue sensipar
-d/w pt and
-
-
Date of Service: September 10, 2023
CC / HPI / ROS
-
Chief Complaint:
LICHA
History of Present Illness:
Calcium still high 11.5
LICHA/Cr stable 1.7
BP stable
Review of Systems:
no CP/SOB
Labs
-
Labs:
WBC 11.3 10^3/uL (4.8-10.8) H 09/10/23 06:30
RBC 3.50 10^6/uL (4.70-6.10) L 09/10/23 06:30
Hgb 11.4 g/dL (13.0-18.0) L 09/10/23 06:30
Hct 34.3 % (39.0-52.0) L 09/10/23 06:30
Plt Count 269 10^3/uL (130-400) 09/10/23 06:30
Sodium 141 mmol/L (135-145) 09/10/23 06:30
Potassium 3.9 mmol/L (3.5-5.1) 09/10/23 06:30
Chloride 111 mmol/L (98-107) H 09/10/23 06:30
Carbon Dioxide 24 mmol/L (22-30) 09/10/23 06:30
BUN 24 mg/dl (9-20) H 09/10/23 06:30
Creatinine 1.7 mg/dL (0.7-1.3) H 09/10/23 06:30
eGFR 38.78 09/10/23 06:30
Glucose 89 mg/dl (70-99) 09/10/23 06:30
Calcium 11.5 mg/dl (8.4-10.2) H 09/10/23 06:30
Calcium 11.6 mg/dl (8.4-10.2) H 09/10/23 06:30
Phosphorus 3.4 mg/dl (2.5-4.5) 09/10/23 06:30
Tym-S-Bbyokafbqnb Pept 1610 pg/ml 09/09/23 06:02
Albumin 3.8 g/dl (3.5-5.0) 09/07/23 18:39
Physical Exam
-
Vital Signs:
Vital Signs
Temp Pulse Resp BP Pulse Ox
98.7 F 67 19 156/76 95
09/10/23 07:30 09/10/23 08:33 09/10/23 07:30 09/10/23 08:33 09/10/23 09:36
Cardiovascular:: Regular rate and rhythm
Respiratory:: Bilateral: Coarse
Lung Excursion:: Normal
Abdomen:: Nontender and Soft
Bowel Sounds:: Normal
Extremity Edema:: None: Bilateral:
[2023-09-10] MEDS: AREDIA 260 MG IV (13:21)
[2023-09-10 15:30] VITALS: BP 135/65
[2023-09-10] MEDS: LIPITOR 40 MG PO (17:21)
[2023-09-10 23:28] VITALS: BP 174/90
[2023-09-11 06:00] VITALS: BMI 25.3
[2023-09-11 07:35] VITALS: BP 160/77
[2023-09-11 07:35] LABS: Hematocrit 35.6 % (39.0-52.0); Hemoglobin 11.7 g/dL (13.0-18.0); Mean Corp Hgb Conc. 32.9 g/dL (33.0-37.0); Mean Corpuscular Hgb 32.6 pg (27.0-31.0); Mean Corpuscular Volume 99.2 fL (80.0-94.0); Mean Platelet Volume 11.5 fL (7.4-10.4); Platelet Count 259 10^3/uL (130-400); Red Blood Cell Count 3.59 10^6/uL (4.70-6.10); Red Cell Dist. Width 14.3 % (11.5-14.5); White Blood Cell Count 13.6 10^3/uL (4.8-10.8)
[2023-09-11 07:51] LABS: PT 31.1 Sec (11.4-14.6)
[2023-09-11 08:04] LABS: Blood Urea Nitrogen 27 mg/dl (9-20); Calcium 11.2 mg/dl (8.4-10.2); Carbon Dioxide 24 mmol/L (22-30); Chloride 110 mmol/L (98-107); Estimated Creatinine Clearance 32 ml/min; Glucose 98 mg/dl (70-99); Magnesium 1.9 mg/dl (1.6-2.3); Phosphorus 3.3 mg/dl (2.5-4.5); Potassium 4.1 mmol/L (3.5-5.1); Sodium 139 mmol/L (135-145); eGFR 38.78
--- NOTE | 2023-09-11 08:14 | W.PN.HOSP.TC ---
Today's Communication/Plan
-
Continue monitor renal function and calcium.
Assessment / Plan
Assessment / Plan
Physical Exam
General: Comfortable and Conversant
HEENT: Anicteric and Moist mucous membranes
Respiratory: Clear to Auscultation Non Labored Respirations
Cardiac: S1/S2, Regular Rhythm and Murmur
GI: Soft and Non Tender
Musculoskeletal: No Clubbing, No Cyanosis, Trace lower ext edema
Skin: Warm and Dry
Neuro: Awake, Alert, Oriented and Nonfocal/grossly intact
Psych: Calm
A/P:
Acute Kidney Injury on CKD III
-Creatinine 1.28 on Jul 23
-IV fluids discontinued by nephrology
-Cr improved from 1.7 to 1.4 and back up to 1.7 and he has remained the same today.
-Renal ultrasound shows abnormalities and might require renal MRI for further evaluation as outpatient.
-Follow-up nephrology recommendations
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
-Calcium 11.1 on Jul 23, today's 11.5
-Continue Sensipar
-Nephro evaluated and status post Pamidronate on 09/10.
-Calcium still elevated but typically takes 48 hours so we will reevaluate tomorrow
Pneumonitis by CXR lacks clinical correlation
-Patient denies cough, fever, sweats or chills
-Patient received vancomycin and Zosyn in ED -Holding further antibiotics at this time
-CT chest w/o contrast obtained noted Mild to moderate generalized diffuse bilateral increased groundglass opacity and mild generalized prominence of interstitial markings without focal dense consolidation.
broad differential possible air trapping/small airway disease, atypical infection, interstitial edema, diffuse alveolar damage, hypersensitivity pneumonitis, and acute eosinophilic pneumonia
-started empiric Augmentin for now 5 days treatment planned
-Off IV fluids
-Eosinophils were 7.4% upon admission so consideration for eosinophilic pneumonitis--> discussed with patient and at bedside and I recommend pulmonary evaluation as outpatient. At the moment stable from pulmonary standpoint so no need for
further workup unless clinical status changes.
Coronary Artery Disease s/p Stent
-Continue Plavix
Essential Hypertension
-Continue amlodipine, and metoprolol
-Hold lisinopril in setting of elevated creatinine
-hydralazine prn
-Amlodipine increased from 2.5 to 5 mg daily for better bp control.
Hyperlipidemia
-Continue atorvastatin
BPH
-Continue tamsulosin
Hx DVT/[place]
-Continue Coumadin
-INR 2.75 today
-Monitor INR, therapeutic
Code Status: Full Code
PT/OT Case mgmt appreciated Home Health Recommended however patient refusing
discussed with patient and his
Anticipated Discharge: 24 - 48 hours
Subjective/Interval History
-
Date of Service: September 11, 2023
Patient denies any chest pain or shortness of breath. Alert.
Objective Data
-
Labs:
Laboratory Results
09/11/23
06:26
WBC 13.6 H
Hgb 11.7 L
Hct 35.6 L
Plt Count 259
PT 31.1 H
INR 3.00
Sodium 139
Potassium 4.1
Chloride 110 H
Carbon Dioxide 24
BUN 27 H
Creatinine 1.7 H
Glucose 98
Calcium 11.2 H
Vital Signs:
Vital Signs
Temp Pulse Resp BP Pulse Ox
97.9 F 76 16 174/90 94
09/10/23 23:28 09/10/23 23:28 09/10/23 23:28 09/10/23 23:28 09/10/23 23:28
I&O
09/10/23 09/11/23 09/12/23
06:59 06:59 06:59
Intake Total 1999 / 1999 1080 / 1080
Output Total 880 / 880 550 / 550
Balance 1120 / 1120 530 / 530
[2023-09-11 10:41] VITALS: BP 106/81; PULSE 69; O2SAT 99
[2023-09-11] MEDS: ZYLOPRIM 300 MG PO (10:47)
[2023-09-11] MEDS: PLAVIX 75 MG PO (10:47)
[2023-09-11] MEDS: AUGMENTIN 875 MG/125 MG 1 TABLET PO ×2 (10:47→19:56)
[2023-09-11] MEDS: FLOMAX 0.400000000000000022 MG PO (10:47)
[2023-09-11] MEDS: SENSIPAR 60 MG PO (10:47)
[2023-09-11] MEDS: TOPROL XL 25 MG PO ×2 (10:48→20:00)
[2023-09-11] MEDS: NORVASC 5 MG PO (10:48)
[2023-09-11] MEDS: COUMADIN 3 MG PO (10:57)
--- NOTE | 2023-09-11 11:40 | W.PN.NEPH.PH ---
Today's Communication / Plan
-
follow BMP
Assessment/Plan
-
IMP:
Acute Kidney Injury on CKD III cr 1.28/ per chart in jul
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
non gap met acidosis
Pneumonitis by CXR l
Coronary Artery Disease s/p Stent
Essential Hypertension
Hyperlipidemia
BPH
h/o DVT and PE
h/o Gout
h/o K stones
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
Plan:
-follow BMP
-await PTH
-no IVF today
-continue sensipar
-d/w pt and
-
-
Date of Service: September 11, 2023
CC / HPI / ROS
-
Chief Complaint:
LICHA
History of Present Illness:
Calcium down to 11.2 after aredia 09/10
LICHA/Cr stable 1.7
BP stable
Review of Systems:
no CP/SOB
Labs
-
Labs:
WBC 13.6 10^3/uL (4.8-10.8) H 09/11/23 06:26
RBC 3.59 10^6/uL (4.70-6.10) L 09/11/23 06:26
Hgb 11.7 g/dL (13.0-18.0) L 09/11/23 06:26
Hct 35.6 % (39.0-52.0) L 09/11/23 06:26
Plt Count 259 10^3/uL (130-400) 09/11/23 06:26
Sodium 139 mmol/L (135-145) 09/11/23 06:26
Potassium 4.1 mmol/L (3.5-5.1) 09/11/23 06:26
Chloride 110 mmol/L (98-107) H 09/11/23 06:26
Carbon Dioxide 24 mmol/L (22-30) 09/11/23 06:26
BUN 27 mg/dl (9-20) H 09/11/23 06:26
Creatinine 1.7 mg/dL (0.7-1.3) H 09/11/23 06:26
eGFR 38.78 09/11/23 06:26
Glucose 98 mg/dl (70-99) 09/11/23 06:26
Calcium 11.2 mg/dl (8.4-10.2) H 09/11/23 06:26
Phosphorus 3.3 mg/dl (2.5-4.5) 09/11/23 06:26
Zfz-P-Ffgasafppfq Pept 1610 pg/ml 09/09/23 06:02
Albumin 3.8 g/dl (3.5-5.0) 09/07/23 18:39
Physical Exam
-
Vital Signs:
Vital Signs
Temp Pulse Resp BP Pulse Ox
98.5 F 67 16 160/77 94
09/11/23 07:35 09/11/23 07:35 09/11/23 07:35 09/11/23 07:35 09/11/23 07:35
Cardiovascular:: Regular rate and rhythm
Respiratory:: Bilateral: Coarse
Lung Excursion:: Normal
Abdomen:: Nontender and Soft
Bowel Sounds:: Normal
Extremity Edema:: None: Bilateral:
[2023-09-11 12:39] LABS: Intact PTH 238.9 pg/ml (13.6-85.8)
[2023-09-11 15:35] VITALS: BP 152/70
--- NOTE | 2023-09-11 16:28 | CM ---
Spoke with patient and in room.
He lives in [facility]
Offered VN he is unsure he will need VN.
IMM give explained Signed copy on chart.
PLAN HOme with possible VN if requested
[2023-09-11] MEDS: LIPITOR 40 MG PO (17:13)
[2023-09-11 22:36] VITALS: BP 162/78
[2023-09-12 05:07] VITALS: BMI 25.1
[2023-09-12 07:21] VITALS: BP 132/71
--- NOTE | 2023-09-12 08:05 | W.PN.HOSP.TC ---
Today's Communication/Plan
-
Continue current management. Discharge disposition once cleared by nephrology.
Assessment / Plan
Assessment / Plan
Physical Exam
General: Comfortable and Conversant
HEENT: Anicteric and Moist mucous membranes
Respiratory: Clear to Auscultation Non Labored Respirations
Cardiac: S1/S2, Regular Rhythm and Murmur
GI: Soft and Non Tender
Musculoskeletal: No Clubbing, No Cyanosis, Trace lower ext edema
Skin: Warm and Dry
Neuro: Awake, Alert, Oriented and Nonfocal/grossly intact
Psych: Calm
A/P:
Acute Kidney Injury on CKD III
-Creatinine 1.28 on Jul 23
-IV fluids discontinued by nephrology
-Cr improved from 1.7--> 1.4--.1.7--> 1.5 today
-Renal ultrasound shows abnormalities and might require renal MRI for further evaluation as outpatient.
-Follow-up nephrology recommendations
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
-Calcium 11.5-->today is 10.9
-Continue Sensipar
-Nephro evaluated and status post Pamidronate on 09/10.
Pneumonitis by CXR lacks clinical correlation
-Patient denies cough, fever, sweats or chills
-Patient received vancomycin and Zosyn in ED -Holding further antibiotics at this time
-CT chest w/o contrast obtained noted Mild to moderate generalized diffuse bilateral increased groundglass opacity and mild generalized prominence of interstitial markings without focal dense consolidation.
broad differential possible air trapping/small airway disease, atypical infection, interstitial edema, diffuse alveolar damage, hypersensitivity pneumonitis, and acute eosinophilic pneumonia
-started empiric Augmentin for now 5 days treatment planned
-Off IV fluids
-Eosinophils were 7.4% upon admission so consideration for eosinophilic pneumonitis--> discussed with patient and at bedside and I recommend pulmonary evaluation as outpatient. At the moment stable from pulmonary standpoint so no need for
further workup unless clinical status changes.
Coronary Artery Disease s/p Stent
-Continue Plavix
Essential Hypertension
-Continue amlodipine, and metoprolol
-Hold lisinopril in setting of elevated creatinine
-hydralazine prn
-Amlodipine increased from 2.5 to 5 mg daily for better bp control.
Hyperlipidemia
-Continue atorvastatin
BPH
-Continue tamsulosin
Hx DVT/RI
-Continue Coumadin
-INR 3.27 today
-Monitor INR, therapeutic
Code Status: Full Code
PT/OT Case mgmt appreciated Home Health Recommended however patient refusing
Anticipated Discharge: 24 - 48 hours
Subjective/Interval History
-
Date of Service: September 12, 2023
Patient denies any chest pain or shortness of breath.
Objective Data
-
Labs:
Laboratory Results
09/12/23
06:18
WBC Pending
Hgb Pending
Hct Pending
Plt Count Pending
PT Pending
INR Pending
Sodium Pending
Potassium Pending
Chloride Pending
Carbon Dioxide Pending
BUN Pending
Creatinine Pending
Glucose Pending
Calcium Pending
Vital Signs:
Vital Signs
Temp Pulse Resp BP Pulse Ox
98.8 F 76 20 162/78 95
09/11/23 22:36 09/11/23 22:36 09/11/23 22:36 09/11/23 22:36 09/11/23 22:36
I&O
09/11/23 09/12/23 09/13/23
06:59 06:59 06:59
Intake Total 1080 / 1080 720 / 720
Output Total 550 / 550 350 / 350
Balance 530 / 530 370 / 370
Review of Systems
-
All other systems: Reviewed and negative
[2023-09-12 08:07] LABS: Hemoglobin 11.2 g/dL (13.0-18.0); INR 3.27; Mean Corp Hgb Conc. 32.9 g/dL (33.0-37.0); Mean Corpuscular Hgb 32.2 pg (27.0-31.0); Mean Corpuscular Volume 97.7 fL (80.0-94.0); Mean Platelet Volume 11.7 fL (7.4-10.4); PT 33.8 Sec (11.4-14.6); Platelet Count 258 10^3/uL (130-400); Red Blood Cell Count 3.48 10^6/uL (4.70-6.10); Red Cell Dist. Width 14.2 % (11.5-14.5); White Blood Cell Count 12.2 10^3/uL (4.8-10.8)
[2023-09-12] MEDS: TOPROL XL 25 MG PO (08:36)
[2023-09-12] MEDS: AUGMENTIN 875 MG/125 MG 1 TABLET PO (08:36)
[2023-09-12] MEDS: ZYLOPRIM 300 MG PO (08:36)
[2023-09-12] MEDS: FLOMAX 0.400000000000000022 MG PO (08:36)
[2023-09-12] MEDS: PLAVIX 75 MG PO (08:36)
[2023-09-12] MEDS: SENSIPAR 60 MG PO (08:36)
[2023-09-12] MEDS: NORVASC 5 MG PO (08:36)
[2023-09-12] MEDS: COUMADIN 3 MG PO (08:46)
[2023-09-12 09:35] LABS: Blood Urea Nitrogen 28 mg/dl (9-20); Calcium 10.9 mg/dl (8.4-10.2); Carbon Dioxide 26 mmol/L (22-30); Chloride 106 mmol/L (98-107); Estimated Creatinine Clearance 37 ml/min; Glucose 101 mg/dl (70-99); Magnesium 1.9 mg/dl (1.6-2.3); Phosphorus 2.9 mg/dl (2.5-4.5); Potassium 3.9 mmol/L (3.5-5.1); Sodium 139 mmol/L (135-145); eGFR 45.06
[2023-09-12 15:31] VITALS: BP 143/67; PULSE 60; O2SAT 98
--- NOTE | 2023-09-12 15:31 | W.PN.NEPH.PH ---
Today's Communication / Plan
-
see plan
Assessment/Plan
-
IMP:
Acute Kidney Injury on CKD III cr 1.28/ per chart in jul
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
non gap met acidosis
Pneumonitis by CXR l
Coronary Artery Disease s/p Stent
Essential Hypertension
Hyperlipidemia
BPH
h/o DVT and PE
h/o Gout
h/o K stones
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
Plan:
cr mild improvement to 1.5
shanthi better post Pamidronate on 09/10
PTH high at 238 supports the diagnosis
he will need f/u with Endo at [place]
BMP on Sunday
sensipar dose increased to 60mg daily
renal lesion needs further eval with MRI to be done out pt, pt has at [place] to review
-d/w pt and
nephro f/u
ok to d/c
-
-
Date of Service: September 12, 2023
CC / HPI / ROS
-
Chief Complaint:
LICHA
History of Present Illness:
Calcium down to 10.9 after aredia 09/10
LICHA/Cr better at 1.5
BP stable
renal US right kidney shows lobulated area concenrn of juliano
Review of Systems:
no CP/SOB
feels well
Labs
-
Labs:
WBC 12.2 10^3/uL (4.8-10.8) H 09/12/23 06:18
RBC 3.48 10^6/uL (4.70-6.10) L 09/12/23 06:18
Hgb 11.2 g/dL (13.0-18.0) L 09/12/23 06:18
Hct 34.0 % (39.0-52.0) L 09/12/23 06:18
Plt Count 258 10^3/uL (130-400) 09/12/23 06:18
Sodium 139 mmol/L (135-145) 09/12/23 06:18
Potassium 3.9 mmol/L (3.5-5.1) 09/12/23 06:18
Chloride 106 mmol/L (98-107) 09/12/23 06:18
Carbon Dioxide 26 mmol/L (22-30) 09/12/23 06:18
BUN 28 mg/dl (9-20) H 09/12/23 06:18
Creatinine 1.5 mg/dL (0.7-1.3) H 09/12/23 06:18
eGFR 45.06 09/12/23 06:18
Glucose 101 mg/dl (70-99) H 09/12/23 06:18
Calcium 10.9 mg/dl (8.4-10.2) H 09/12/23 06:18
Phosphorus 2.9 mg/dl (2.5-4.5) 09/12/23 06:18
Cyv-S-Aswqqvcingt Pept 1610 pg/ml 09/09/23 06:02
Albumin 3.8 g/dl (3.5-5.0) 09/07/23 18:39
Physical Exam
-
Vital Signs:
Vital Signs
Temp Pulse Resp BP Pulse Ox
98.4 F 65 18 132/71 94
09/12/23 07:21 09/12/23 08:36 09/12/23 07:21 09/12/23 08:36 09/12/23 13:34
Cardiovascular:: Regular rate and rhythm
Respiratory:: Bilateral: CTA (fine rales at bases )
Lung Excursion:: Normal
Abdomen:: Nontender and Soft
Extremity Edema:: None: Bilateral:
Herrera Catheter: No
[2023-09-12 15:55] VITALS: BP 111/55
--- NOTE | 2023-09-12 16:05 | W.DCSUMMARY ---
Discharge Summary
Discharge Data
Date of Admission: 09/07/23
Date of Discharge: 09/12/23
-
Pending Results: No
Hospital Course
Patient 88-year-old male with medical history of hypertension CAD hyperlipidemia hyperparathyroidism CKD among other medical problems presented to the with generalized weakness and confusion. Patient was found to be in acute kidney injury on
chronic kidney disease and hypercalcemia. Nephrology consulted. She was initially given IV fluid and subsequently discontinue by nephrology. She was given IV pamidronate and she was increased on Sensipar. JULIA inhibitor was added because maternal
jeremy was increased for blood pressure control. His renal function has some improvement. He had an ultrasound of his kidneys that shows abnormalities that need to follow-up with MRI and nephrology recommends to do this as outpatient. Nephrology
cleared him for discharge today. Otherwise, patient is hemodynamically stable and eager to go home today. PT OT evaluated patient as well. He will be discharged in stable condition today.
Discharge duration: 35 minutes
Discharge Plan
-
Patient Disposition: Home (Routine Discharge)
Discharge Diagnosis/Procedures: Acute kidney injury. Hypocalcemia. Chronic kidney disease stage III. Hypertension. Pneumonitis.
Condition: Fair
Diet: Low Cholesterol
Activity: As tolerated
Driving Restrictions: As prior to admission
Blood Work: Please PCP to order CBC, BMP within 1 week.
Referrals:
Jatinder Rao MD [Active] - in two to four weeks (Pneumonitis findings eval)
Alex Bowman MD [Family Provider] - in less than 1 week
Isela Dwyer MD [Active] - in two to four weeks
Prescriptions:
New
amlodipine 5 mg Tablet
5 mg PO DAILY 30 Days Qty: 30 0RF
amoxicillin-pot clavulanate 875-125 mg Tablet
1 tab PO Q12 3 Days Qty: 6 0RF
cinacalcet 30 mg Tablet
60 mg PO DAILY 30 Days Qty: 60 0RF
Continued
warfarin [Jantoven] 4 MG tablet
4 mg PO MOTH
warfarin [Jantoven] 3 MG tablet
3 mg PO SUTUWEFRSA
tamsulosin 0.4 MG capsule
0.4 mg PO DAILY
allopurinol 300 MG tablet
300 mg PO DAILY
atorvastatin 40 MG tablet
40 mg PO QPM Qty: 90 0RF
clopidogrel 75 MG tablet
75 mg PO DAILY Qty: 90 0RF
metoprolol succinate 25 MG tablet extended release 24 hr
25 mg PO BID Qty: 60 0RF
multivitamin Tablet
1 tab PO DAILY
tacrolimus 0.1 % ointment
1 applic TOPICAL DAILY
Patient Comments:
09/07/2023: Pt unsure of where he applies this.
clotrimazole 1 % cream
1 applic TOPICAL BID
Patient Comments:
09/07/2023: Per spouse apply to legs
cholecalciferol (vitamin D3) [Vitamin D3] 25 mcg (1,000 unit) Tablet
25 mcg PO DAILY
Refresh Classic (PF) 10 DROPS dropperette
1 drops BOTH EYES QIDPRN PRN (Reason: dry eyes)
Discontinued
lisinopril 40 MG tablet
40 mg PO DAILY
cinacalcet 30 MG tablet
30 mg PO DAILY
amlodipine 5 mg tablet
2.5 mg PO DAILY
Discharge Orders:
Discharge Patient (As Directed); Ordered 09/12/23
Ordered By: Jorge A Key
Discharge Date and Time
Discharge Date/Time: 09/12/23 19:31
[2023-09-12] MEDS: LIPITOR 40 MG PO (17:10)
--- NOTE | 2023-09-12 18:41 | PTCARENOTE ---
Reviewed discharge instructions with patient and . Both verbalize understanding of discharge instructions. Peripheral IV removed. Patient left via wheelchair with and staff escort. Denies questions at this time.
--- NOTE | 2023-09-13 08:30 | CM ---
MD entered order for dc after CM left at 18:00.
Pt had said he had a ride back to [facility].
\\When offered at admission he had declined VN .
Was unable to give IMM at dc.
PLAN Home no needs
== END 2023-09-12 19:31 | disposition home or self-care (01) | DRG 682 ==
LOC: 4 EAST ACU 23:18
PROVIDERS: Emergency Medicine; Internal Medicine; Nurse Practitioner; Physician Assistant Medical; ADMITTING PHYSICIAN Hospitalist; ATTENDING PHYSICIAN Hospitalist; CONSULT PHYSICIAN Internal Medicine; EMERGENCY PHYSICIAN Emergency Medicine; FAMILY PHYSICIAN Internal Medicine
DX: N17.9 Acute kidney failure, unspecified (principal); J18.9 Pneumonia, unspecified organism; E87.20 Acidosis, unspecified; E21.0 Primary hyperparathyroidism; N18.30 Chronic kidney disease, stage 3 unspecified
CPT/HCPCS: 71046; 71250; 76775; 80048; 80053; 81003; 81015; 82306; 82607; 82746; 83605; 83735; 83880; 83970; 84100; 85025; 85027; 85610; 87040; 87070; 87086; 87502; 87811; 96361; 96365; 96367; 97116; 97162; 97166; 97530; 97535; 99284; J2430; J7030

== ENCOUNTER → 2024-12-22 09:13 | Outpatient (REF) | payer MEDICARE, OTHER, SELFPAY | LOC: HWRCS 09:13 | PROVIDERS: ATTENDING PHYSICIAN Nuclear Medicine Nuclear Cardiology; FAMILY PHYSICIAN Internal Medicine | DX: I25.10 Atherosclerotic heart disease of native coronary artery without angina pectoris (principal); I34.0 Nonrheumatic mitral (valve) insufficiency | CPT/HCPCS: 93306 ==

== ENCOUNTER 2025-02-02 12:24 | Emergency (ER) | payer MEDICARE, OTHER, SELFPAY ==
[2025-02-02] VITALS (8 sets, daily range): BP systolic 129–190; BP diastolic 64–82; BMI 27.5
[2025-02-02 13:09] LABS: Hematocrit 34.1 % (39.0-52.0); Hemoglobin 11.6 g/dL (13.0-18.0); Mean Corp Hgb Conc. 34.0 g/dL (33.0-37.0); Mean Corpuscular Volume 97.2 fL (80.0-94.0); Nucleated Red Blood Cells % 0 % (-); Platelet Count 188 10^3/uL (130-400); Red Cell Dist. Width 14.1 % (11.5-14.5)
[2025-02-02 13:18] LABS: INR 1.75; PT 20.7 Sec (11.4-14.6)
[2025-02-02 13:38] LABS: ALT (SGPT) 22 U/L (0-50); AST (SGOT) 29 U/L (17-59); Albumin 4.2 g/dl (3.5-5.0); Alkaline Phosphatase 78 U/L (38-126); Blood Urea Nitrogen 27 mg/dl (9-20); Calcium 9.5 mg/dl (8.4-10.2); Carbon Dioxide 26 mmol/L (22-30); Chloride 103 mmol/L (98-107); Estimated Creatinine Clearance 45 ml/min; Glucose 106 mg/dl (70-99); Potassium 3.6 mmol/L (3.5-5.1); Sodium 135 mmol/L (135-145); Total Protein 6.5 g/dl (6.3-8.2); eGFR 58.53
--- NOTE | 2025-02-02 14:24 | ED.GENMED ---
History of Present Illness
<PRAVEEN Lott - Last Filed: 02/02/25 19:57>
General
Chief Complaint: Dizziness
Source: patient
Exam Limitations: none
Time Seen by Provider: 02/02/25 13:40
Nursing documentation reviewed up to this point in time: agreed with
History of Present Illness
History of Present Illness:
Patient is an 89-year-old male with past medical history of hypertension hyperlipidemia VT PE from [facility] presents to the ER for evaluation. Sunday ( 3 d ago) he went to sit down on the toilet and slipped hitting the back of his head on the
shower edge. reports he had bruising behind his right ear. He denies loss of consciousness. reports however on Sunday and Sunday he had a headache and had 2 episodes of projectile vomiting. He was seen by the physician engineer third assistant
[facility] and sent here to the ER. Patient is on Coumadin history of PE. He did not take Coumadin dose yet this morning.
He denies any headache or vomiting today. reports he says similar onset
Past History
<PRAVEEN Lott - Last Filed: 02/02/25 19:57>
Past History
ED Past Medical History: HTN, Hypercholesterolemia and Other (DVT,PE, PVD)
ED Past Surgical History: Orthopedic
Social History
Tobacco: Non-smoker
Alcohol: None
Drug: None
Personal:
Living: with family
Phy Exam
<PRAVEEN Lott - Last Filed: 02/02/25 19:57>
General Physical Exam
General Presentation: no apparent distress
General age: appears stated age
General Skin: warm and dry
General Habitus: normal
General Mental: alert
General Hydration: appears well hydrated
Cardiovascular Exam
Cardiovascular Exam: regular rate/rhythm, no murmur and normal peripheral pulses
Pulmonary Exam
Pulmonary Exam: lungs clear and no respiratory distress
Neurological Exam
Neurological Exam: alert and oriented x3
Musculoskeletal Exam
Musculoskeletal Exam: other (+ ecchymosis posterior to right ear, no bony c spine tenderness )
Skin Exam
Skin Exam: normal color and warm/dry
Psychiatric Exam
Psychiatric Exam: normal mood/affect
Course
<PRAVEEN Lott - Last Filed: 02/02/25 19:57>
Orders/Labs/Results
Orders:
Orders
02/02/25 12:37
Electrocardiogram (*1) Urgent
Reason for Study: Vertigo / Dizzy
CT Head W/o Iv Contrast Urgent
Comment:
Reason For Exam: fall and head strike
02/02/25 12:38
EKG- Treatment ONCE
02/02/25 12:59
Complete Blood Count/With Diff Urgent
Comprehensive Metabolic Panel Urgent
PT/INR [Prothrombin Time] Urgent
02/02/25 14:29
CT Cervical Spine W/o Iv Contr Urgent
Comment:
Reason For Exam: trauma
02/02/25 16:11
Levetiracetam Injectable [Keppra] 1,000 mg IV NOW STA
02/02/25 16:20
Phytonadione [Aquamephyton] 10 mg 0.9% Sodium Chloride 50 ml [Nss] 50 ml IV NOW
02/02/25 16:21
Prothrombin Complex(Pcc),Human [Kcentra] 2,113 unit Empty Viaflex Container 100 ml [Viaflex Empty Container] 80 ml IV NOW
Does patient have a dx of serious acute active bleeding?: Yes
Does patient have prior history of HIT?: No
Urgent surgery/invasive procedure planned in next 6 hours?: No
02/02/25 16:45
Nicardipine 40 mg/200 ml [Cardene] 40 mg in 200 ml IV PER PROTOCOL
Initial dose in mg/hr, then titrate:: 5
Titrate to keep:: SBP 120 - 140 mmHg
Titrate by mg/hr:: 2.5 mg/hr
Frequency of titrations (minutes):: 5-15 minutes
Maximum dose in mg/hr:: 15
Begin to taper infusion when:: Remained at goal for 2hrs
Taper by mg/hr:: 2.5 mg/hr
Frequency of taper (minutes) if patient maintains goal:: every 15-30 minutes
Taper to off?: Yes
If infusion off & no longer maintaining goal:: Contact Provider
Abnormal Lab Results
02/02/25
12:59
WBC 12.8 H 10^3/uL
(4.8-10.8)
RBC 3.51 L 10^6/uL
(4.70-6.10)
Hgb 11.6 L g/dL
(13.0-18.0)
Hct 34.1 L %
(39.0-52.0)
MCV 97.2 H fL
(80.0-94.0)
MCH 33.0 H pg
(27.0-31.0)
MPV 11.0 H fL
(7.4-10.4)
Absolute Neuts (auto) 9.4 H 10^3/uL
(1.4-6.5)
Absolute Monos (auto) 1.3 H 10^3/uL
(0.1-0.6)
Lymphocytes % 14.0 L %
(20.5-51.1)
Monocytes % 10.2 H %
(1.7-9.3)
PT 20.7 H Sec
(11.4-14.6)
BUN 27 H mg/dl
(9-20)
Glucose 106 H mg/dl
(70-99)
02/02/25 12:59
07/21/25 12:59
Vital Signs
Initial and Last Documented VS:
Initial Vital Signs
Temp Pulse Resp BP Pulse Ox
97.9 F 70 18 161/79 97
02/02/25 12:33 02/02/25 12:33 02/02/25 12:33 02/02/25 12:33 02/02/25 12:33
Last Documented Vital Signs
Temp Pulse Resp BP Pulse Ox
97.9 F 77 26 141/69 95
02/02/25 12:33 02/02/25 17:34 02/02/25 15:10 02/02/25 17:30 02/02/25 17:29
Piercer Operator consulted with Physician
Piercer Operator consulted with physician?: Yes
Name of Physician Consulted: Hilda
Rogerlt;Hiram Stevens, DO - Last Filed: 02/02/25 18:17>
Orders/Labs/Results
Orders:
Orders
02/02/25 12:37
Electrocardiogram (*1) Urgent
Reason for Study: Vertigo / Dizzy
CT Head W/o Iv Contrast Urgent
Comment:
Reason For Exam: fall and head strike
02/02/25 12:38
EKG- Treatment ONCE
02/02/25 12:59
Complete Blood Count/With Diff Urgent
Comprehensive Metabolic Panel Urgent
PT/INR [Prothrombin Time] Urgent
02/02/25 14:29
CT Cervical Spine W/o Iv Contr Urgent
Comment:
Reason For Exam: trauma
02/02/25 16:11
Levetiracetam Injectable [Keppra] 1,000 mg IV NOW STA
02/02/25 16:20
Phytonadione [Aquamephyton] 10 mg 0.9% Sodium Chloride 50 ml [Nss] 50 ml IV NOW
02/02/25 16:21
Prothrombin Complex(Pcc),Human [Kcentra] 2,113 unit Empty Viaflex Container 100 ml [Viaflex Empty Container] 80 ml IV NOW
Does patient have a dx of serious acute active bleeding?: Yes
Does patient have prior history of HIT?: No
Urgent surgery/invasive procedure planned in next 6 hours?: No
02/02/25 16:45
Nicardipine 40 mg/200 ml [Cardene] 40 mg in 200 ml IV PER PROTOCOL
Initial dose in mg/hr, then titrate:: 5
Titrate to keep:: SBP 120 - 140 mmHg
Titrate by mg/hr:: 2.5 mg/hr
Frequency of titrations (minutes):: 5-15 minutes
Maximum dose in mg/hr:: 15
Begin to taper infusion when:: Remained at goal for 2hrs
Taper by mg/hr:: 2.5 mg/hr
Frequency of taper (minutes) if patient maintains goal:: every 15-30 minutes
Taper to off?: Yes
If infusion off & no longer maintaining goal:: Contact Provider
Abnormal Lab Results
02/02/25
12:59
WBC 12.8 H 10^3/uL
(4.8-10.8)
RBC 3.51 L 10^6/uL
(4.70-6.10)
Hgb 11.6 L g/dL
(13.0-18.0)
Hct 34.1 L %
(39.0-52.0)
MCV 97.2 H fL
(80.0-94.0)
MCH 33.0 H pg
(27.0-31.0)
MPV 11.0 H fL
(7.4-10.4)
Absolute Neuts (auto) 9.4 H 10^3/uL
(1.4-6.5)
Absolute Monos (auto) 1.3 H 10^3/uL
(0.1-0.6)
Lymphocytes % 14.0 L %
(20.5-51.1)
Monocytes % 10.2 H %
(1.7-9.3)
PT 20.7 H Sec
(11.4-14.6)
BUN 27 H mg/dl
(9-20)
Glucose 106 H mg/dl
(70-99)
02/02/25 12:59
02/02/25 12:59
Vital Signs
Initial and Last Documented VS:
Initial Vital Signs
Temp Pulse Resp BP Pulse Ox
97.9 F 70 18 161/79 97
02/02/25 12:33 02/02/25 12:33 02/02/25 12:33 02/02/25 12:33 02/02/25 12:33
Last Documented Vital Signs
Temp Pulse Resp BP Pulse Ox
97.9 F 77 26 141/69 95
02/02/25 12:33 02/02/25 17:34 02/02/25 15:10 02/02/25 17:30 02/02/25 17:29
<PRAVEEN Lott - Last Filed: 02/02/25 19:57>
MDM/Problems Addressed
Differential Diagnosis Includes:
Not limited to head injury intracranial hemorrhage
MDM/Problems Addressed:
Patient is an 89-year-old male on Coumadin for PE presents to the ER for evaluation. Patient fell Sunday 3 days ago hit the back of his head on the bathtub. He vomited on Sunday and sunday and had a headache . He is asymptomatic currently.
He did not take Coumadin today. CAT scan however does show a left-sided subdural hematoma and 2 small foci of subarachnoid hemorrhage involving left frontal lobe. He is awake alert oriented here in the ER. No bony tenderness. CT cervical spine
negative. Pt has no other injuries.
Case reviewed with ED physician.
Results of imaging and the need for transfer discussed with patient and who asked for [facility] as [facility] is closer to their home
I spoke to [facility] .Case reviewed with Dr. Calderon who does recommend vitamin K and Kcentra because patient is on Coumadin along with Keppra.
She also does recommend that his blood pressure be kept 140 systolically or below with Cardene if needed.
Blood pressure 160 systolically Cardene ordered.
ETA for ground now 8 pm as per [facility] and [facility] does recommend to fly . d/c w/ pt and family
Chronic conditions affecting care:
On coumadin
<PRAVEEN Lott - Last Filed: 02/02/25 19:57>
*Radiology
Radiology exam reviewed: radiology read reviewed
*Pulse Oximetry
SaO2: 97
Oxygen Mode of Delivery: Room air
Patient hypoxic: no
*Critical Care Note
Total Time (30-74mins, 75-104mins- exclusive of procedures): See critical care note
comment:
Critical care statement: A total of 40 minutes of critical care time was provided for this patient. This includes management of unstable vital signs, evaluation of the patient at bedside, reviewing the patient's pertinent medical records, discussion
with consultants, review of old EKGs and review of pertinent medical records. This time with separate from time utilized to perform the aforementioned documented procedures
ED Attending Note
<PRAVEEN Lott - Last Filed: 02/02/25 19:57>
-
Portions of this chart may have been created with voice recognition software.� Occasional wrong word or��sound alike� substitutions may have occurred due to the inherent limitations of voice recognition software.
<Hiram Stevens DO - Last Filed: 02/02/25 18:17>
ED Attending Note
Patient seen and examined by attending physician: Yes
I performed the substantive portion of visit, reviewed & personally made and approve the management plan that is documented in note by myself or KEAGAN.: Yes
ED Attending Note:
I agree with Mary's note.
Patient presents after having fall and striking back of his head a couple days ago. Patient has some nausea.
No focal weakness. Currently no headache.
General: Awake, Alert, Oriented X3. No acute distress.
Vitals: unremarkable
Head: Atraumatic
Eyes: Pupils equal, EOMI
Throat: Airway intact, no exudates
Neck: Trachea midline
Neuro: No focal weakness
Skin: Warm, dry, no rash
Extremities: pulses equal b/l, no edema
Patient found to have acute subdural hematoma on head CT. Fortunately patient has not had any significant neurologic deficits despite the injury occurring couple days ago. Mary discussed with trauma surgery at [place] who recommended Kcentra
for his INR of 1.7, Keppra. Patient will be transferred to [place].
Critical care time: 38 minutes
Critical care statement: A total of 38 minutes of critical care time was provided for this patient between myself and Mary. This includes management of unstable vital signs, evaluation of the patient at bedside, reviewing the patient's pertinent
medical records, discussion with consultants, review of old EKGs and review of pertinent medical records. This time with separate from time utilized to perform the aforementioned documented procedures
Discharge Plan
Departure
Patient Disposition: [facility]
Date of Disposition: 02/02/25
Time of Disposition: 16:25
Patient with high blood pressure during this ER visit?: Yes
Condition: Fair
Covid-19: Not Applicable
Discharge Problem:
Acute subdural hematoma
Prescriptions:
No Action
warfarin [Jantoven] 4 MG tablet
4 mg PO MOTH
warfarin [Jantoven] 3 MG tablet
3 mg PO SUTUWEFRSA
tamsulosin 0.4 MG capsule
0.4 mg PO DAILY
allopurinol 300 MG tablet
300 mg PO DAILY
atorvastatin 40 MG tablet
40 mg PO QPM Qty: 90 0RF
clopidogrel 75 MG tablet
75 mg PO DAILY Qty: 90 0RF
metoprolol succinate 25 MG tablet extended release 24 hr
25 mg PO BID Qty: 60 0RF
multivitamin Tablet
1 tab PO DAILY
tacrolimus 0.1 % ointment
1 applic TOPICAL DAILY
Patient Comments:
09/07/2023: Pt unsure of where he applies this.
clotrimazole 1 % cream
1 applic TOPICAL BID
Patient Comments:
09/07/2023: Per spouse apply to legs
cholecalciferol (vitamin D3) [Vitamin D3] 25 mcg (1,000 unit) Tablet
25 mcg PO DAILY
Refresh Classic (PF) 10 DROPS dropperette
1 drops BOTH EYES QIDPRN PRN (Reason: dry eyes)
amlodipine 5 mg Tablet
5 mg PO DAILY 30 Days Qty: 30 0RF
amoxicillin-pot clavulanate 875-125 mg Tablet
1 tab PO Q12 3 Days Qty: 6 0RF
cinacalcet 30 mg Tablet
60 mg PO DAILY 30 Days Qty: 60 0RF
Referrals:
Alex Bowman MD [Family Provider]
Hospital Transfer
Other hospital: [place]
I certify that the patient requires transfer: Yes
Discussed case with accepting physician: DR Calderon
Reason for transfer: higher level of care
Interventions
Interventions:
*Risk Screen - Suicide Last Done: 02/02/25 13:12
*General Assessment Last Done: 02/02/25 13:12
*Neglect/Abuse Screening Last Done: 02/02/25 13:12
*ED- Fall Risk Assessment Last Done: 02/02/25 13:12
*ED COVID-19 Vaccine History Last Done: 02/02/25 13:12
*Nursing Disposition Last Done: 02/02/25 18:17
ED- Neurological Assessment Last Done: 02/02/25 16:08
Discharge Date and Time
Discharge Date/Time: 02/02/25 18:17
Print Language: CUBAN
[2025-02-02] MEDS: KEPPRA 1000 MG IV (16:18)
[2025-02-02] MEDS: KCENTRA 80 UNIT IV (16:54)
[2025-02-02] MEDS: AQUAMEPHYTON 51 MG IV (17:07)
[2025-02-02] MEDS: CARDENE 200 IV (17:12)
== END 2025-02-02 18:17 | disposition short-term general hospital (02) ==
LOC: EMR 12:24
PROVIDERS: Emergency Medicine; EMERGENCY PHYSICIAN Emergency Medicine; FAMILY PHYSICIAN Internal Medicine
DX: S06.5X0A Traumatic subdural hemorrhage without loss of consciousness, initial encounter (principal); R11.10 Vomiting, unspecified; S00.431A Contusion of right ear, initial encounter; W01.198A Fall on same level from slipping, tripping and stumbling with subsequent striking against other object, initial encounter; I10 Essential (primary) hypertension; I73.9 Peripheral vascular disease, unspecified; E78.00 Pure hypercholesterolemia, unspecified; M10.9 Gout, unspecified; E21.3 Hyperparathyroidism, unspecified; E55.9 Vitamin D deficiency, unspecified; Z79.01 Long term (current) use of anticoagulants; Z96.653 Presence of artificial knee joint, bilateral; Z86.711 Personal history of pulmonary embolism; Z86.718 Personal history of other venous thrombosis and embolism; Z87.891 Personal history of nicotine dependence
CPT/HCPCS: 99291; 96374; 96375 ×3; 70450; 72125; 80053; 85025; 85610; 93005; J7168